=== PATIENT | female | born 1960 | race Caucasian/White ===

== ENCOUNTER 2018-01-24 14:54 | Outpatient (REF) | payer OTHER, SELFPAY ==
[2018-01-24 21:07] LABS: Abs Immature Grans 0.01 k/cumm (0.0-0.09); Absolute Basophil Count 0.02 k/cumm (0.0-0.2); Absolute Eosinophil Count 0.27 k/cumm (0.0-0.7); Absolute Lymphocyte Count 1.45 k/cumm (1.2-3.4); Absolute Monocyte Count 0.53 k/cumm (0.11-0.7); Absolute Neutrophil Count 3.79 k/cumm (1.2-6.7); Basophils % 0.3; Eosinophils % 4.4; HCT 40.4 % (36.0-46.0); HGB 13.1 g/dL (12.0-15.5); Immature Grans % 0.2; Lymphocytes % 23.9; Mean Corp. HGB Concentration 32.4 g/dL (32.0-36.0); Mean Corpuscular Hemoglobin 30.7 pg (27.0-33.0); Mean Corpuscular Volume 94.6 fL (80-95); Mean Platelet Volume 11.6 fL (8.0-11.0); Monocytes % 8.7; Neutrophils % 62.5; Platelet Count 189 x1000/uL (130-400); RBC 4.27 m/cumm (4.00-5.20); White Blood Cell Count 6.07 k/cumm (4.4-10.8)
[2018-01-24 21:22] LABS: ALT 42 U/L (12-78); AST 30 U/L (15-37); Albumin 3.8 g/dL (3.4-5.0); Alkaline Phosphatase 103 U/L (46-116); Anion Gap 13.1 mmol/L (3-11); BUN 13 mg/dL (7-18); Bilirubin, Total 0.6 mg/dL (0.2-1.0); CO2 22.9 mmol/L (21.0-32.0); CREATININE 0.64 mg/dL (0.55-1.02); Chloride 104 mmol/L (98-107); Glucose 94 mg/dL (70-100); Potassium 3.9 mmol/L (3.5-5.1); Sodium 140 mmol/L (136-145); Total Protein 7.1 g/dL (6.4-8.2)
[2018-01-24 21:30] LABS: INR 0.9 (1.0-3.5); Prothrombin Time 9.2 sec (9.3-10.8)
[2018-01-25 13:21] LABS: Calcium 9.1 mg/dL (8.5-10.1)
== END 2018-01-24 15:14 ==
LOC: NCHCN 14:54
PROVIDERS: PCP Nurse Practitioner Family; Visit Provider Physician Assistant Medical
DX: Z01.818 Encounter for other preprocedural examination (principal); R69 Illness, unspecified
CPT/HCPCS: 80053; 85025; 85610

== ENCOUNTER 2022-07-01 15:05 | Outpatient (REF) | payer MEDICARE, SELFPAY ==
[2022-07-01 20:30] LABS: ALT 40 U/L (14-59); AST 26 U/L (15-37); Albumin 4.2 g/dL (3.4-5.0); Alkaline Phosphatase 68 U/L (46-116); Anion Gap 5.2 mmol/L (3-11); BUN 14 mg/dL (7-18); Bilirubin, Total 0.3 mg/dL (0.2-1.0); CO2 27.8 mmol/L (21.0-32.0); CREATININE 0.7 mg/dL (0.55-1.02); Calcium 9.8 mg/dL (8.5-10.1); Calculated LDL 44 mg/dL (<100); Chloride 105 mmol/L (98-107); Cholesterol 146 mg/dL (<200); Estimated GFR 97.72 (mL/min/1.73m2); Glucose 97 mg/dL (74-106); HDL Cholesterol 64 mg/dL (40-60); Potassium 4.3 mmol/L (3.5-5.1); Sodium 138 mmol/L (136-145); Total Protein 7.5 g/dL (6.4-8.2); Triglyceride 190 mg/dL (<150)
== END 2022-07-01 15:06 | disposition home or self-care (01) ==
LOC: NCHCN 15:05
PROVIDERS: PCP Nurse Practitioner Family; Visit Provider Nurse Practitioner Family
DX: E78.5 Hyperlipidemia, unspecified (principal)
CPT/HCPCS: 80053; 80061

== ENCOUNTER 2023-04-18 19:27 | Outpatient (REF) | payer OTHER, SELFPAY ==
--- OUTSIDE RECORDS SUMMARY | 2023-04-18 19:33 | XMS_ITS | Continuity of Care Document ---
Author Name Unknown Organization [facility] Address [address] [place] [address] Care Team Providers Care Intel Recruiter Name Role Phone Eve Terry Primary Care Physician Encounter [facility] [id number] Date(s): 08/05/22 - 08/05/[address] [address] Discharge Disposition: Home or Self Care Attending Physician: Eve Terry FILLER MIXER Admitting Physician: Eve Terry FILLER MIXER Referring Physician: Eve Terry FILLER MIXER Allergies, Adverse Reactions, Alerts Substance Reaction Severity Status codeine Nausea Unknown Active alendronate 1 Unknown Active NSAIDs 2 Nauseous Unknown Active 1per previous PCP 2gets nauseous on empty stomach, per previous PCP, yet ibuprofen prescribed for neck pain, toleratedmeloxicam Immunizations Given and Recorded Vaccine Date Status Refusal Reason SARS-CoV-2 (COVID-19) mRNA-1273 vaccine 09/05/20 R ecorded SARS-CoV-2 (COVID-19) mRNA-1273 vaccine 08/05/20 R ecorded tetanus-diphth toxoids (Td) adult/adol 04/24/20 Re corded tetanus-diphth toxoids (Td) adult/adol 06/04/05 Re corded tetanus-diphth toxoids (Td) adult/adol 04/11/84 Re corded influenza virus vaccine, live 12/31/19 Recorded influenza virus vaccine, live 03/28/19 Recorded zoster vaccine, inactivated 07/31/18 Recorded zoster vaccine, inactivated 01/24/18 Recorded pneumococcal 23-polyvalent vaccine 05/05/17 Record ed influenza virus vaccine, inactivated 04/27/12 Niraj rded influenza virus vaccine, inactivated 12/03/10 Niraj rded influenza virus vaccine, inactivated 01/09/10 Niraj rded influenza virus vaccine, inactivated 05/22/09 Niraj rded influenza virus vaccine, inactivated 01/05/08 Niraj rded influenza virus vaccine, inactivated 01/24/07 Niraj rded influenza virus vaccine, inactivated 03/16/06 Niraj rded tetanus/diphth/pertuss (Tdap) adult/adol 06/09/10 Recorded Novel [id number], all formulation 05/22/09 Recorded Medications atorvastatin 20 mg oral tablet 20 mg = 1 tab, Oral, Daily, FOR 90 DAYS, # 90 tab, 2 Refill(s), Pharmacy: [facility] Start Date: 03/10/22 Status: Ordered Cipro 500 mg oral tablet 500 mg = 1 tab, Oral, every 12 hr, # 20 tab, 0 Refill(s), Pharmacy: [facility] Start Date: 12/18/21 Stop Date: 12/28/21 Status: Ordered FLUoxetine 20 mg oral capsule 20 mg = 1 cap, Oral, Daily Start Date: 11/26/21 Status: Ordered FLUoxetine 40 mg oral capsule 40 mg = 1 cap, Oral, Daily, # 90 cap, 3 Refill(s), Pharmacy: [facility] Start Date: 03/07/22 Status: Ordered Maxalt 10 mg oral tablet See Instructions, 1 tab PO at sign of migraine, may repeat in 2 hours, NTE 30 mg per day Start Date: 11/26/21 Status: Ordered meloxicam 15 mg oral tablet 15 mg = 1 tab, Oral, Daily, for 90 days, # 90 tab, 2 Refill(s), Pharmacy: [facility] Start Date: 03/10/22 Status: Ordered Topamax 25 mg oral tablet 25 mg = 1 tab, Oral, Daily, for 90 days Start Date: 11/26/21 Status: Ordered Topamax 50 mg oral tablet 50 mg = 1 tab, Oral, Daily, for 90 days Start Date: 11/26/21 Status: Ordered traZODone 50 mg oral tablet 50 mg = 1 tab, Oral, every night at bedtime, for 90 days Start Date: 11/26/21 Status: Ordered Vitamin B Complex Vitamin B Complex, 1 tab, Oral, Daily, 0 Refill(s) Start Date: 11/26/21 Status: Ordered Vitamin D3 See Instructions, 1 po daily Start Date: 11/26/21 Status: Ordered Problem List Condition Confirmation Course Effective Dates Status Health Status Informant Cervical radiculopathy Confirmed Active Ex-smoker Confirmed 07/16/20 Active Fibromyalgia Confirmed Active Hepatosplenomegaly Confirmed 08/28/20 Active Hyperlipidemia Confirmed Active Migraine without aura Confirmed Active Mixed anxiety and depressive disorder Confirmed 04/22/21 Active Procedures Procedure Date Related Diagnosis Body Site Status Hysterectomy 07/2018 Completed Fusion 1 02/2018 Completed Laparoscopic total hysterectomy 04/13/09 Completed Angiogram 2 Completed Appendectomy Completed Cholecystectomy Completed Lumpectomy 3 Completed Nerve block in lumbar spine Completed Tonsillectomy 4 Completed 1[facility] ACDF (fusion) C5-C6 2with no pathology 3Lump removal, right hand 4As a child Social History Social History Type Response Smoking Status Smoking tobacco use: Former tobacco user;Never; Total pack years: 37; 1 entered on: 11/11/21 Sex Female 1quit in 2008 Patient Care team information Care Team Personnel Name: Eve Terry FILLER MIXER Position: PowerChart View Only Member Role: Primary Care Physician Address: Address: [address] [place] [id number] [place] [address]
--- OUTSIDE RECORDS SUMMARY | 2023-04-18 19:33 | XMS_ITS | Continuity of Care Document ---
Author Name Unknown Organization [facility] Address [address] [place] [address] Care Team Providers Care Cv/Cvn Cv Tsc System Operator Name Role Phone Jasmin Liu Primary Care Physician [phone] Encounter [facility] Date(s): 01/28/22 - 01/28/22 [facility] [address] [place] [address] Encounter Diagnosis Physical exam, annual(Discharge Diagnosis) - 01/28/22 Sinusitis(Discharge Diagnosis) - 01/28/22 Discharge Disposition: Home or Self Care Attending Physician: Jasmin Liu Admitting Physician: Jasmin Liu Allergies, Adverse Reactions, Alerts Substance Reaction Severity [...] rded tetanus/diphth/pertuss (Tdap) adult/adol 06/09/10 Recorded Novel [id number], all formulation 05/22/09 Recorded Medications atorvastatin 20 mg oral tablet 20 mg = 1 tab, Oral, Daily, FOR 90 DAYS, # 90 tab, 0 Refill(s), Pharmacy: Pharmacy Start Date: 12/15/21 Status: Ordered Cipro 500 mg oral tablet 500 mg = 1 tab, Oral, every 12 hr, # 20 tab, 0 Refill(s), Pharmacy: Pharmacy Start Date: 12/18/21 Stop Date: 12/28/21 Status: Ordered FLUoxetine 20 mg oral capsule 20 mg = 1 cap, Oral, Daily Start Date: 11/26/21 Status: Ordered FLUoxetine 40 mg oral capsule 40 mg = 1 cap, Oral, Daily Start Date: 11/26/21 Status: Ordered Maxalt 10 mg oral tablet See Instructions, 1 tab PO at sign of migraine, may repeat in 2 hours, NTE 30 mg per day Start Date: 11/26/21 Status: Ordered meloxicam 15 mg oral tablet 15 mg = 1 tab, Oral, Daily, for 90 days, # 90 tab, 0 Refill(s), Pharmacy: Pharmacy Start Date: 12/15/21 Status: Ordered Topamax 25 mg oral tablet [...] 1quit in 2008 Patient Care team information Personnel Name: Jasmin Liu Address: Address: [address] [place] [id number] [place]
--- OUTSIDE RECORDS SUMMARY | 2023-04-18 19:33 | XMS_ITS | Continuity of Care Document ---
Author Name Unknown Organization [facility] Address [address] [place] [address] Care Team Providers Care Flasher Adjuster Name Role Phone RoddyShelly bobide Maribell Primary Care Physician [phone] Encounter [facility] [id number] Date(s): 01/21/23 - 01/21/23 [facility] [address] [place] [address] Discharge Disposition: Home or Self Care Attending Physician: Geo Walker DO Admitting Physician: Geo Walker DO Referring Physician: Geo Walker DO Allergies, Adverse Reactions, Alerts Substance Reaction Severity Status codeine Nausea Unknown Active alendronate 1 Unknown Active NSAIDs 2 Nauseous Unknown Active 1per previous PCP 2gets nauseous on empty stomach, per previous PCP, yet ibuprofen prescribed for neck pain, toleratedmeloxicam Functional Status 01/21/23 ADLs Independent Recent Travel History No recent travel 01/14/23 Living Situation Home independently Immunizations Given and Recorded Vaccine Date Status [...] rded tetanus/diphth/pertuss (Tdap) adult/adol 06/09/10 Recorded Novel [id number], all formulation 05/22/09 Recorded Medications atorvastatin 20 mg oral tablet 20 mg = 1 tab, Oral, Daily, FOR 90 DAYS, # 90 tab, 2 Refill(s), Pharmacy: [facility] Start Date: 03/10/22 Status: Ordered Botox for migraines, 0 Refill(s) Start Date: 01/21/23 Status: Ordered Cipro 500 mg oral tablet 500 mg = 1 tab, Oral, every 12 hr, # 20 tab, 0 Refill(s), Pharmacy: [facility] Start Date: 12/18/21 Stop Date: 12/28/21 Status: Ordered clacium,iron,zinc clacium,iron,zinc, 0 Refill(s) Start Date: 12/28/22 Status: Ordered FLUoxetine 20 mg oral capsule 20 mg = 1 cap, Oral, Daily Start Date: 11/26/21 Status: Ordered FLUoxetine 40 mg oral capsule 40 mg = 1 cap, Oral, Daily, # 90 cap, 3 Refill(s), Pharmacy: [facility] Start Date: 03/07/22 Status: Ordered Maxalt 10 mg oral tablet See Instructions, 1 tab PO at sign of migraine, may repeat in 2 hours, NTE 30 mg per day Start Date: 11/26/21 Status: Ordered meloxicam 15 mg oral tablet 15 mg = 1 tab, Oral, Daily, for 90 days, # 90 tab, 2 Refill(s), Pharmacy: [facility] Start Date: 03/10/22 Status: Ordered Metamucil 400 mg oral capsule 2,000 mg = 5 cap, Oral, QID, PRN as needed for constipation, with at least 8 ounces of water, # 160cap, 0 Refill(s) Start Date: 01/21/23 Status: Ordered multivitamin adult, oral tablet 0 Refill(s) Start Date: 12/28/22 Status: Ordered Topamax 25 mg oral tablet [...] Course Effective Dates Status Health Status Informant Aneurysm 1 Confirmed 12/31/22 Active Cervical radiculopathy Confirmed Active Ex-smoker Confirmed 07/16/20 Active Fibromyalgia Confirmed Active Hepatosplenomegaly Confirmed 08/28/20 Active Hyperlipidemia Confirmed Active Migraine without aura Confirmed Active Mixed anxiety and depressive disorder Confirmed 04/22/21 Active 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) Procedures Procedure Date Related Diagnosis Body Site Status Hysterectomy 07/2018 Completed Fusion 1 02/2018 Completed Laparoscopic total hysterectomy 04/13/09 Completed Angiogram 2 Completed Appendectomy Completed Cholecystectomy Completed Lumpectomy 3 Completed Nerve block in lumbar spine Completed Tonsillectomy 4 Completed 1[facility] ACDF (fusion) C5-C6 2with no pathology 3Lump removal, right hand 4As a child Vital Signs Most recent to oldest [Reference Range]: 1 2 3 Temperature Temporal Artery [36-38 Deg C] 36.3 Deg C (01/21/23 10:50 AM) 37.1 Deg C (01/21/23 10:29 AM) 37.2 Deg C (01/21/23 8:53 AM) Temperature Temporal Artery (DegF) [97.3-100 Deg F] 97.34 Deg F (01/21/23 10:50 AM) 98.78 Deg F (01/21/23 10:29 AM) Peripheral Pulse Rate [60-100 bpm] 77 bpm (01/21/23 10:50 AM) 87 bpm (01/21/23 10:45 AM) 93 bpm (01/21/23 10:40 AM) Heart Rate Monitored [60-100 bpm] 86 bpm (01/21/23 10:50 AM) 90 bpm (01/21/23 10:45 AM) 93 bpm (01/21/23 10:40 AM) Respiratory Rate [12-24 br/min] 15 br/min (01/21/23 10:50 AM) 22 br/min (01/21/23 10:45 AM) 22 br/min (01/21/23 10:40 AM) Blood Pressure [90-140/60-90 mmHg] 132/73mmHg (01/21/23 10:50 AM) 117/72mmHg (01/21/23 10:45 AM) 120/76mmHg (01/21/23 10:40 AM) Mean Arterial Pressure, Cuff [65-140 mmHg] 93 mmHg (01/21/23 10:50 AM) 87 mmHg (01/21/23 10:45 AM) 91 mmHg (01/21/23 10:40 AM) Weight 74.8 kg (01/21/23 8:53 AM) Height 163 cm (01/21/23 8:53 AM) Social History Social History Type Response Smoking Status Smoking tobacco use: Former tobacco user;Never; Total pack years: 37; 1 entered on: 01/14/23 Sex Female 1quit in 2008 Hospital Discharge Instructions Patient Education 01/21/2023 09:39:14 ss colonoscopy discharge instructions (CUSTOM) COLONOSCOPY / SIGMOIDOSCOPY Good job with prep! No polyps found. Repeat Colonoscopy in 10 years Following day: Return to full activity, including work. Diet: Eat and drink normally, unless instructed otherwise. Treatment for common after affects: Mild abdominal pain, bloating, or excessive gas: Rest, eat lightly and use a heating pad. Symptoms to watch for and report to your physician: SEVERE abdominal pain or bloating. Fever within 24 hours after procedure. A large amount of rectal bleeding. (A small amount of blood from the rectum is not serious, especially if hemorrhoids are present.) If you have had a Colonoscopy: Do not attempt to drive a vehicle or operate power equipment of any kind for at least 24 hours after discharge from the hospital. Do not consume alcoholic beverages or other mood-altering drugs on the day of surgery. Mild irritation at needle site: Apply warm, moist pack to area for 20 minutes four times a day for 2-3 days. Call physician if persistent redness and/or drainage at needle site. In the event of any problems after surgery, do not hesitate to contact your doctor, [facility] , or the Emergency Room at [phone]. Discharge instructions * Eryn Kramer: PERFORM Event Display: Discharge Instructions Authored Date: [id number] LADAN JEFFERY J :1960 Age:62 years Sex:Female Visit Date:01/21/2023 Primary Care Physician: Eve Terry CERNER ANALYST Hospital Discharge Instructions We would like to thank you for allowing us to assist you with your healthcare needs. The following includes patient education materials and information regarding your injury/illness. Your Summary Discharge Vitals Temperature??(Temporal Artery) 99.0 ??F (37.2 ??C) Heart Rate??(Peripheral) 76 Respiratory Rate?? 16 Blood Pressure?? 125/78?? Height?? 64.17 in (163 cm) Weight?? 164.93 lb (74.8 kg) Education Materials COLONOSCOPY / SIGMOIDOSCOPY Good job with prep! No polyps found. Repeat Colonoscopy in 10 years ? Following day: Return to full activity, including work. Diet: Eat and drink normally, unless instructed otherwise. ? Treatment for common after affects: Mild abdominal pain, bloating, or excessive gas: Rest, eat lightly and use a heating pad. ? Symptoms to watch for and report to your physician: SEVERE abdominal pain or bloating. ? Fever within 24 hours after procedure. ? A large amount of rectal bleeding. (A small amount of blood from the rectum is not serious, especially if hemorrhoids are present.) ? If you have had a Colonoscopy: Do not attempt to drive a vehicle or operate power equipment of any kind for at least 24 hours after discharge from the hospital. ? Do not consume alcoholic beverages or other mood-altering drugs on the day of surgery. ? Mild irritation at needle site: Apply warm, moist pack to area for 20 minutes four times a day for 2-3 days. ? Call physician if persistent redness and/or drainage at needle site. ? In the event of any problems after surgery, do not hesitate to contact your doctor, [facility] , or the Emergency Room at [phone]. Patient/Email Operations Manager Signature Patient Name:JEFFERY PICKERING I have received this information and my questions have been answered. Patient/Email Operations Manager Name: Patient/Email Operations Manager Signature: Relationship to Patient: Witness Name/Signature: Date: Electronically Signed on: 01/21/2023 10:40 EDTSigned by:PAF History and physical note * Lisa Cosby: PERFORM Event Display: History and Physical Authored Date: [id number] JEFFERY PICKERING :1960 Age:62 years Sex:Female Primary Care Physician: Chute, Eve H CERNER ANALYST Chief Complaint blood in stool, constipation History of Present Illness Patient presents with occasional rectal bleeding and left sided abdominal pain. She was diagnosed with diverticulitis in July. Her last colonoscopy was many years ago (around 10). No family hx of colon cancer. She does have history of hemorrhoids. She has had blood in her stool occasionally. ??Shedoes not take any fiber supplementation. Many prior surgeries including appendectomy, multiple c-s.Denies blood thinner use. No fevers, chills. no prior episodes of diverticulitis Review of Systems see hpi Physical Exam ?Vitals & Measurements ?T:??36.9?C ??(Tympanic)?? HR:??77??(Peripheral)?? BP:??132/86?? SpO2:??94%?HT:??166.7??cm?? WT:??78.15??kg?? BMI:??28.12?? BSA:??1.9?? NAD, cooperative ?? Non labored breathing ?? RR ?? Soft, NT, ND, well healed lower midline scars ?? DALJIT: NO masses palpated?? good rectal tone ,no blood on glove. Kaylah was maternal fetal physician present Assessment/Plan 1.??Diverticulitis??K57.92 ?Discussed clinical nature of diverticulitis and potential indications for surgery. Given the patient is due to screening colonoscopy with change in bowel movements, blood in stool??and recent episode of diverticulitis, it would be beneficial for her to have a C-scope. Patient was??encourage to increase her fiber intake as well and stay well hydrated. ? 2.??Encounter for screening colonoscopy??Z12.11 ?As above. ?? Images ?? CT abdomen and pelvis in July reviewed Problem List/Past Medical History Ongoing ?Cervical radiculopathy ??Ex-smoker ??Fibromyalgia ??Hepatosplenomegaly ??Hyperlipidemia ??Migraine without aura ??Mixed anxiety and depressive disorder Historical ?No qualifying data Procedure/Surgical History ???Hysterectomy (07/2018)???Fusion (02/2018)???Laparoscopic total hysterectomy (04/14/2009)???Angiogram???Appendectomy???Cholecystectomy???Nerve block in lumbar spine???Lumpectomy???Tonsillectomy ?? Medications ??atorvastatin 20 mg oral tablet, 20 mg= 1 tab, Oral, Daily, 2 refills ??Cipro 500 mg oral tablet, 500 mg= 1 tab, Oral, every 12 hr ??clacium,iron,zinc ??FLUoxetine 20 mg oral capsule, 20 mg= 1 cap, Oral, Daily ??FLUoxetine 40 mg oral capsule, 40 mg= 1 cap, Oral, Daily, 3 refills ??Maxalt 10 mg oral tablet, See Instructions ??meloxicam 15 mg oral tablet, 15 mg= 1 tab, Oral, Daily, 2 refills ??multivitamin adult, oral tablet ??Topamax 25 mg oral tablet, 25 mg= 1 tab, Oral, Daily ??Topamax 50 mg oral tablet, 50 mg= 1 tab, Oral, Daily ??traZODone 50 mg oral tablet, 50 mg= 1 tab, Oral, every night at bedtime ??Vitamin B Complex, 1 tab, Oral, Daily ??Vitamin D3, See Instructions Allergies NSAIDs??(Nauseous) alendronate codeine??(Nausea) Social History Alcohol ??Current, Beer, 1-2 times per year- Comments: a few times per week, 3 - 4 beers Electronic Cigarette/Vaping ??Electronic Cigarette Use: Never. Tobacco ??Former tobacco user Tobacco Use:. Total pack years: 37. Never Smokeless Tobacco use:.- Comments: quit in 2008 Family History ??Chronic obstructive lung disease: Mother. ??Diabetes mellitus: Sister and Brother. ??Disorder of thyroid gland: Mother. ??Fibrosis of lung: Mother. ??Heart disease: Brother. ??Hyperlipidemia: Sister. ??Hypertensive disorder: Father and Daughter. ??Myocardial infarction: Father. ? Immunizations ??Vaccine ??Date ??Status ??SARS-CoV-2 (COVID-19) mRNA-1273 vaccine ??09/05/2020 ??Recorded ??SARS-CoV-2 (COVID-19) mRNA-1273 vaccine ??08/05/2020 ??Recorded ??tetanus-diphth toxoids (Td) adult/adol ??04/24/2020 ??Recorded ??influenza virus vaccine, live ??12/31/2019 ??Recorded ??influenza virus vaccine, live ??03/28/2019 ??Recorded ??zoster vaccine, inactivated ??07/31/2018 ??Recorded ??zoster vaccine, inactivated ??01/24/2018 ??Recorded ??pneumococcal 23-polyvalent vaccine ??05/05/2017 ??Recorded ??influenza virus vaccine, inactivated ??04/27/2012 ??Recorded ??influenza virus vaccine, inactivated ??12/03/2010 ??Recorded ??tetanus/diphth/pertuss (Tdap) adult/adol ??06/09/2010 ??Recorded ??influenza virus vaccine, inactivated ??01/09/2010 ??Recorded ??influenza virus vaccine, inactivated ??05/22/2009 ??Recorded ??Novel [id number], all formulation ??05/22/2009 ??Recorded ??influenza virus vaccine, inactivated ??01/05/2008 ??Recorded ??influenza virus vaccine, inactivated ??01/24/2007 ??Recorded ??influenza virus vaccine, inactivated ??03/16/2006 ??Recorded ??tetanus-diphth toxoids (Td) adult/adol ??06/04/2005 ??Recorded ??tetanus-diphth toxoids (Td) adult/adol ??04/11/1984 ??Recorded ? Signature Line Electronically Signed on 12/28/22 02:32 PM Geo Walker DO [1] [1]??Office Visit Note; Geo Walker DO 12/28/2022 14:31 EDT Electronically Signed on 12/29/22 11:04 AM Lisa Cosby * Geo Walker DO: PERFORM Event Display: History and Physical Authored Date: [id number] H&P??reviewed, pt examined,??no significant changes to medical history. Proceed as planned.? Geo Walker DO 01/21/2023 ?? Electronically Signed on 01/21/23 09:44 AM Geo Walker DO Patient Care team information Care Team Personnel Name: Eve Terry CERNER ANALYST Position: PowerChart View Only Member Role: Informed Provider Address: Address: [address] [place] [phone]- Care Team Related Persons Name: MAHENDRA PICKERING Address: Home [address] [place] [address], [phone]
--- OUTSIDE RECORDS SUMMARY | 2023-04-18 19:33 | XMS_ITS | Continuity of Care Document ---
Author Name Unknown Organization [facility] Address [address] [place] [address] Care Team Providers Care Floral Assistant Name Role Phone Eve Terry Primary Care Physician Encounter [facility] [id number] Date(s): 10/04/22 - 10/04/[address] [address] Discharge Disposition: Home or Self Care Attending Physician: Eve Terry INDUSTRIAL EDITOR Admitting Physician: Eve Terry INDUSTRIAL EDITOR Referring Physician: Eve Terry INDUSTRIAL EDITOR Allergies, Adverse Reactions, Alerts Substance Reaction Severity [...] rded tetanus/diphth/pertuss (Tdap) adult/adol 06/09/10 Recorded Novel [id number], all formulation 05/22/09 Recorded Medications atorvastatin 20 mg oral tablet 20 mg = 1 tab, Oral, Daily, FOR 90 DAYS, # 90 tab, 2 Refill(s), Pharmacy: [facility] Start Date: 03/10/22 Status: Ordered Cipro 500 mg oral tablet 500 mg = 1 tab, Oral, every 12 hr, # 20 tab, 0 Refill(s), Pharmacy: [facility] Start Date: 12/18/21 Stop Date: 12/28/21 Status: Ordered FLUoxetine 20 mg oral capsule 20 mg = 1 cap, Oral, Daily Start Date: 11/26/21 Status: Ordered FLUoxetine 40 mg oral capsule 40 mg = 1 cap, Oral, Daily, # 90 cap, 3 Refill(s), Pharmacy: [facility] Start Date: 03/07/22 Status: Ordered Maxalt 10 mg oral tablet See Instructions, 1 tab PO at sign of migraine, may repeat in 2 hours, NTE 30 mg per day Start Date: 11/26/21 Status: Ordered meloxicam 15 mg oral tablet 15 mg = 1 tab, Oral, Daily, for 90 days, # 90 tab, 2 Refill(s), Pharmacy: [facility] Start Date: 03/10/22 Status: Ordered [...] information Care Team Personnel Name: Eve Terry INDUSTRIAL EDITOR Position: PowerChart View Only Member Role: Primary Care Physician Address: Address: [address] [place] [id number] [place] [address] Care Team Related Persons Name: MAHENDRA PICKERING Address: Home
--- OUTSIDE RECORDS SUMMARY | 2023-04-18 19:33 | XMS_ITS | Continuity of Care Document ---
Author Name Unknown Organization [facility] Address [address] [place] [address] Care Team Providers Care Assistant Restaurant General Manager Name Role Phone Eve Terry Primary Care Physician Encounter [facility] Date(s): 07/21/22 - 07/21/22 [facility] [address] [place] [address] [place] Encounter Diagnosis Diverticulitis(Discharge Diagnosis) - 07/21/22 Diverticulitis of intestine, part unspecified, without perforation or abscess without bleeding(Final) - Other retirement (current) drug therapy(Final) - Personal history of nicotine dependence(Final) - Discharge Disposition: Home or Self Care Attending Physician: José Antonio Nunes MD Admitting Physician: José Antonio Nunes MD Allergies, Adverse Reactions, Alerts Substance Reaction Severity Status codeine Nausea Unknown Active alendronate 1 Unknown Active NSAIDs 2 Nauseous Unknown Active 1per previous PCP 2gets nauseous on empty stomach, per previous PCP, yet ibuprofen prescribed for neck pain, toleratedmeloxicam Functional Status 07/21/22 Family Member Travel History No recent t ravel Recent Travel History No recent travel Other exposure to Infectious Disease Non e Immunizations Given and Recorded Vaccine Date Status [...] rded tetanus/diphth/pertuss (Tdap) adult/adol 06/09/10 Recorded Novel [id number], all formulation 05/22/09 Recorded Medications !-Augmentin 875 mg-125 mg oral tablet 1 tab, Oral, every 8 hr, X 5 days, # 15 tab, 0 Refill(s), 07/26/22 18:01:00 EDT, Pharmacy: [id number], 162, cm, 07/21/22 15:56:00 EDT, Height/Length Dosing, 73, kg, 07/21/22 15:56:00 EDT, Weight Dosing Start Date: 07/21/22 Stop Date: 07/26/22 Status: Ordered atorvastatin 20 mg oral tablet 20 mg = 1 tab, Oral, Daily, FOR 90 DAYS, # 90 tab, 2 Refill(s), Pharmacy: [facility] Start Date: 03/10/22 Status: Ordered Cipro 500 mg oral tablet 500 mg = 1 tab, Oral, every 12 hr, # 20 tab, 0 Refill(s), Pharmacy: [facility] Start Date: 12/18/21 Stop Date: 12/28/21 Status: Ordered FLUoxetine 20 mg oral capsule 20 mg = 1 cap, Oral, Daily Start Date: 11/26/21 Status: Ordered FLUoxetine 40 mg oral capsule 40 mg = 1 cap, Oral, Daily, # 90 cap, 3 Refill(s), Pharmacy: [facility] Start Date: 03/07/22 Status: Ordered Maxalt 10 mg oral tablet See Instructions, 1 tab PO at sign of migraine, may repeat in 2 hours, NTE 30 mg per day Start Date: 11/26/21 Status: Ordered meloxicam 15 mg oral tablet 15 mg = 1 tab, Oral, Daily, for 90 days, # 90 tab, 2 Refill(s), Pharmacy: [facility] Start Date: 03/10/22 Status: Ordered Topamax [...] 3Lump removal, right hand 4As a child Results Laboratory List Name Date CBC w/ Diff 07/21/22 Comprehensive Metabolic Panel (CMP) 07/21 Automated Diff 07/21/22 Urinalysis Microscopic 07/21/22 Urinalysis with Micro if Indicated and C ulture if Indicated 07/21/22 Most recent to oldest [Reference Range]: 1 WBC [5.0-10.0 x10^3/mcL] 8.3 x10^3/mcL (07/21/22 4:25 PM) RBC [4.1-5.3 x10^6/mcL] 4.2 x10^6/mcL (07/21/22 4:25 PM) Neutro Auto [40.0-75.0 %] 55.0 % (07/21/22 4:25 PM) Lymph Auto [20.0-50.0 %] 34.4 % (07/21/22 4:25 PM) [place] Auto [2.0-15.0 %] 7.2 % (07/21/22 4:25 PM) Basophil Auto [0.0-1.0 %] 0.5 % (07/21/22 4:25 PM) BUN [7-18 mg/dL] 13 mg/dL (07/21/22 4:25 PM) UA Color Yellow (07/21/22 4:10 PM) UA WBC [0-3] 0-3 (07/21/22 4:10 PM) Glucose Level [74-106 mg/dL] 92 mg/dL (07/21/22 4:25 PM) Potassium Level [3.5-5.1 mmol/L] 3.8 mmo l/L (07/21/22 4:25 PM) MCV [80.0-96.0] 93.4 (07/21/22 4:25 PM) UA Urobilinogen Normal (07/21/22 4:10 PM) UA Bili [Negative] Negative (07/21/22 4:10 PM) UA Ketones Negative (07/21/22 4:10 PM) AST [15-37 unit/L] 16 unit/L (07/21/22 4:25 PM) ALT [14-59 unit/L] 32 unit/L (07/21/22 4:25 PM) MCHC [31.0-35.0 g/dL] 32.1 g/dL (07/21/22 4:25 PM) Sodium Level [136-145 mmol/L] 141 mmol/L (07/21/22 4:25 PM) UA RBC [0-2] 0-2 (07/21/22 4:10 PM) UA Leuk Est Trace *ABN* (07/21/22 4:10 PM) UA Nitrite Negative (07/21/22 4:10 PM) UA Glucose [Negative] Negative (07/21/22 4:10 PM) Hct [37.0-47.0 %] 39.6 % (07/21/22 4:25 PM) UA Bacteria Rare /HPF (07/21/22 4:10 PM) Calcium Level [8.5-10.1 mg/dL] 8.9 mg/dL (07/21/22 4:25 PM) Albumin Level [3.4-5.0 g/dL] 3.5 g/dL (07/21/22 4:25 PM) Protein Total [6.4-8.2 g/dL] 7.0 g/dL (07/21/22 4:25 PM) UA Protein Negative (07/21/22 4:10 PM) MCH [26.0-32.0 pg] 30.0 pg (07/21/22 4:25 PM) Neutro Absolute 4.6 x10^3/mcL *NA* (07/21/22 4:25 PM) Bilirubin Total [0.2-1.0 mg/dL] 0.3 mg/d L (07/21/22 4:25 PM) Hgb [12.0-16.0 g/dL] 12.7 g/dL (07/21/22 4:25 PM) Alk Phos [46-146 unit/L] 89 unit/L (07/21/22 4:25 PM) UA Blood Negative (07/21/22 4:10 PM) UA Mucous None Seen /HPF (07/21/22 4:10 PM) UA Spec Grav 1.010 *NA* (07/21/22 4:10 PM) Platelets [130-450 x10^3/mcL] 242 x10^3/ mcL (07/21/22 4:25 PM) CO2 [21-32 mmol/L] 23 mmol/L (07/21/22 4:25 PM) UA Squam Epithelial [None Seen] None See n (07/21/22 4:10 PM) UA pH 7.0 *NA* (07/21/22 4:10 PM) eGFR Non-AA [>=60] 104 (07/21/22 4:25 PM) eGFR AA [>=60] 104 (07/21/22 4:25 PM) UA Appear Clear (07/21/22 4:10 PM) Chloride Level [98-107 mmol/L] 108 mmol/ L *HI* (07/21/22 4:25 PM) RDW-CV [11.7-17.0 %] 12.6 % (07/21/22 4:25 PM) Imm Gran Auto [0.0-0.9 %] 0.4 % (07/21/22 4:25 PM) UA Culture Ind?. Not Indicated (07/21/22 4:10 PM) Creatinine Level [0.55-1.02 mg/dL] 0.55 mg/dL (07/21/22 4:25 PM) Eos, Auto [1.0-6.0 %] 2.5 % (07/21/22 4:25 PM) Vital Signs Most recent to oldest [Reference Range]: 1 2 Temperature Temporal Artery [36-38 Deg C ] 36.3 Deg C (07/21/22 3:50 PM) Peripheral Pulse Rate [60-100 bpm] 70 bp m (07/21/22 6:13 PM) 71 bpm (07/21/22 3:50 PM) Respiratory Rate [12-24 br/min] 16 br/mi n (07/21/22 6:13 PM) 20 br/min (07/21/22 3:50 PM) Blood Pressure [90-140/60-90 mmHg] 130/9 0mmHg (07/21/22 6:13 PM) 152/83mmHg *HI* (07/21/22 3:50 PM) Weight Dosing 73.00 kg (07/21/22 3:56 PM) Weight Estimated 73.00 kg (07/21/22 3:50 PM) Height/Length Dosing 162.000 cm (07/21/22 3:56 PM) Height/Length Estimated 162.000 cm (07/21/22 3:50 PM) Social History Social History Type Response Smoking Status Smoking tobacco use: Former tobacco user;Never; Total pack years: 37; 1 entered on: 11/11/21 Sex Female 1quit in 2008 Hospital Discharge Instructions Patient Education 07/21/2022 16:59:39 Diverticulitis Diverticulitis Diverticulitis is infection or inflammation of small pouches (diverticula) in the colon that form due to a condition called diverticulosis. Diverticula can trap stool (feces) and bacteria, causing infection and inflammation. Diverticulitis may cause severe stomach pain and diarrhea. It may lead to tissue damage in the colon that causes bleeding or blockage. The diverticula may also burst (rupture) and cause infected stool to enter other areas of the abdomen. What are the causes? This condition is caused by stool becoming trapped in the diverticula, which allows bacteria to grow in the diverticula. This leads to inflammation and infection. What increases the risk? You are more likely to develop this condition if you have diverticulosis. The risk increases if you: ??? Are overweight or obese. ??? Do not get enough exercise. ??? Drink alcohol. ??? Use tobacco products. ??? Eat a diet that has a lot of red meat such as beef, pork, or bahena. ??? Eat a diet that does not include enough fiber. High-fiber foods include fruits, vegetables, beans, nuts, and whole grains. ??? Are over 40 years of age. What are the signs or symptoms? Symptoms of this condition may include: ??? Pain and tenderness in the abdomen. The pain is normally located on the left side of the abdomen, but it may occur in other areas. ??? Fever and chills. ??? Nausea. ??? Vomiting. ??? Cramping. ??? Bloating. ??? Changes in bowel routines. ??? Blood in your stool. How is this diagnosed? This condition is diagnosed based on: ??? Your medical history. ??? A physical exam. ??? Tests to make sure there is nothing else causing your condition. These tests may include: ??? Blood tests. ??? Urine tests. ??? CT scan of the abdomen. How is this treated? Most cases of this condition are mild and can be treated at home. Treatment may include: ??? Taking edtb-ane-gqofrml pain medicines. ??? Following a clear liquid diet. ??? Taking antibiotic medicines by mouth. ??? Resting. More severe cases may need to be treated at a hospital. Treatment may include: ??? Not eating or drinking. ??? Taking prescription pain medicine. ??? Receiving antibiotic medicines through an IV. ??? Receiving fluids and nutrition through an IV. ??? Surgery. When your condition is under control, your health care provider may recommend that you have a colonoscopy. This is an exam to look at the entire large intestine. During the exam, a lubricated, bendable tube is inserted into the anus and then passed into the rectum, colon, and other parts of the large intestine. A colonoscopy can show how severe your diverticula are and whether something else may be causing your symptoms. Follow these instructions at home: Medicines ??? Take bszt-qne-axakilm and prescription medicines only as told by your health care provider. These include fiber supplements, probiotics, and stool softeners. ??? If you were prescribed an antibiotic medicine, take it as told by your health care provider. Donot stop taking the antibiotic even if you start to feel better. ??? Ask your health care provider if the medicine prescribed to you requires you to avoid driving or using machinery. Eating and drinking ??? Follow a full liquid diet or another diet as directed by your health care provider. ??? After your symptoms improve, your health care provider may tell you to change your diet. He or she may recommend that you eat a diet that contains at least 25 grams (25 g) of fiber daily. Fiber makes it easier to pass stool. Healthy sources of fiber include: ??? Berries. One cup contains 4???8 grams of fiber. ??? Beans or lentils. One-half cup contains 5???8 grams of fiber. ??? Green vegetables. One cup contains 4 grams of fiber. ??? Avoid eating red meat. General instructions ??? Do not use any products that contain nicotine or tobacco, such as cigarettes, e-cigarettes, andchewing tobacco. If you need help quitting, ask your health care provider. ??? Exercise for at least 30 minutes, 3 times each week. You should exercise hard enough to raise your heart rate and break a sweat. ??? Keep all follow-up visits as told by your health care provider. This is important. You may needto have a colonoscopy. Contact a health care provider if: ??? Your pain does not improve. ??? Your bowel movements do not return to normal. Get help right away if: ??? Your pain gets worse. ??? Your symptoms do not get better with treatment. ??? Your symptoms suddenly get worse. ??? You have a fever. ??? You vomit more than one time. ??? You have stools that are bloody, black, or tarry. Summary ??? Diverticulitis is infection or inflammation of small pouches (diverticula) in the colon that form due to a condition called diverticulosis. Diverticula can trap stool (feces) and bacteria, causing infection and inflammation. ??? You are at higher risk for this condition if you have diverticulosis and you eat a diet that does not include enough fiber. ??? Most cases of this condition are mild and can be treated at home. More severe cases may need deyanira treated at a hospital. ??? When your condition is under control, your health care provider may recommend that you have an exam called a colonoscopy. This exam can show how severe your diverticula are and whether something else may be causing your symptoms. ??? Keep all follow-up visits as told by your health care provider. This is important. This information is not intended to replace advice given to you by your health care provider. Make sure you discuss any questions you have with your health care provider. Document Revised: 01/07/2020 Document Reviewed: 01/07/2020 [employer] Patient Education ?? 2021 [employer]. 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 Exacerbated with movement. Dysuria, pain when attempting BM. hx stone left. Denies fevers at home, afebrile in triage. Hx scar tissue s/p c- section. No gal/apen History Of Present Illness: 62 y.o. woman presents to the emergency department to be evaluated for pain diffusely in her abdomen and back. Her pain is primarily in her lower abdomen and radiating toward her pelvis and back. Shereports that it has been present for 3 days. She reports that this is a different pain from her previous abdominal pain. She denies any fevers, chills, sweats. She has had some nausea without any vomiting. She has not had any change in bowel movements (she reports that she deals with chronic diarrhea). She has been passing gas normally. She denies any dysuria or hematuria but does endorse some pressure in her suprapubic region on urinating. She has had a good appetite and had a normal lunch. She took some ibuprofen last night, no pain medications today. Physical Exam Vitals & Measurements T:??36.3?C ??(Temporal Artery)?? HR:??71??(Peripheral)?? RR:??20?? BP:??152/83?? SpO2:??96%?? HT:??162.000??cm?? WT:??73.00??kg??(Estimated)?? Pain Score:??10?? General: A&Ox3, Calm, no apparent distress, well developed, pleasant and cooperative ?? HEENT: Head ATNC. Eyes: RJ. Extraocular Mobility: intact and symmetrical. Conjunctiva: non-injected, anicteric, no discharge. Oral Cavity: moist. Neck: no masses, no crepitus. Lymph Nodes: no cervical lymphadenopathy? Respiratory: CTA bilaterally, no wheezing, no rales/crackles? CV: RRR, normal S1, normal S2, no murmurs, rubs or gallops ?? Abdomen : soft, non-tender, non-distended, no rebound or guarding, no hepatosplenomegaly ?? Extremities: no le swelling, warm and well-perfused, no cyanosis, capillary refill <2 seconds? Skin: no rash, no lesions, no bruising? Neuro: normal tone, normal strength in all 4 extremities, sensation intact?? Medical Decision MakinF presents with 3 days of abdominal pain Thorough chart review performed Pt had a CT a/p about a year ago with indication which appears to be similar to today's, CT was without any acute findings She is well and non toxic appearing with reassuring VS today, she appears to say that her pain is different today Large DDx Plan: labs, CT a/p, analgesia No leukocytosis and reassuring labs overall CT with mild diverticulitis Discussed conservative treatment and latest recommendations to avoid Abx with the patient. She willstart Abx if her pain has not improved tomorrow. Discharge instructions and return precautions discussed, all questions answered. Procedure No Qualifying Data Assessment/Plan 1.??Diverticulitis??K57.92 Ordered: !-Augmentin 875 mg-125 mg oral tablet, 1 tab, Oral, every 8 hr, X 5 days, # 15 tab, 0 Refill(s), 07/26/22 18:01:00 EDT, Pharmacy: [id number], 162, cm, 07/21/22 15:56:00 EDT, Height/Length Dosing, 73, kg, 07/21/22 15:56:00 EDT, Weight Dosing Discharge Patient, 07/21/22 18:03:00 EDT, Constant Indicator ?? Orders: !-Zofran, 4 mg = 2 mL, IV Push, Soln, every 6 hr, PRN nausea/vomiting, First Dose: 07/21/22 16:22:00 EDT, STAT Patient Education Diverticulitis Medication Reconciliation New Prescription amoxicillin-clavulanate (!-Augmentin 875 mg-125 mg oral tablet)1 tab Oral (given by mouth) every 8 hours for 5 Days. Refills: 0. ?? Unchanged atorvastatin (atorvastatin 20 mg oral tablet)1 tab Oral (given by mouth) every day. FOR 90 DAYS. Refills: 2. ?? cholecalciferol (Vitamin D3)1 po daily. ?? ciprofloxacin (Cipro 500 mg oral tablet)1 tab Oral (given by mouth) every 12 hours for 10 Days. Refills: 0. ?? FLUoxetine (FLUoxetine 20 mg oral capsule)1 Capsules Oral (given by mouth) every day. ?? FLUoxetine (FLUoxetine 40 mg oral capsule)1 Capsules Oral (given by mouth) every day. Refills: 3. ?? meloxicam (meloxicam 15 mg oral tablet)1 tab Oral (given by mouth) every day. for 90 days. Refills:2. ?? Other Prescription (Vitamin B Complex)1 tab Oral (given by mouth) every day. ?? rizatriptan (Maxalt 10 mg oral tablet)1 tab PO at sign of migraine, may repeat in 2 hours, NTE 30 mg per day. ?? topiramate (Topamax 25 mg oral tablet)1 tab Oral (given by mouth) every day. for 90 days. ?? topiramate (Topamax 50 mg oral tablet)1 tab Oral (given by mouth) every day. for 90 days. ?? traZODone (traZODone 50 mg oral tablet)1 tab Oral (given by mouth) every night at bedtime. for 90 days. Problem List/Past Medical History Ongoing Cervical radiculopathy Ex-smoker Fibromyalgia Hepatosplenomegaly Hyperlipidemia Migraine without aura Mixed anxiety and depressive disorder Historical No qualifying data Procedure/Surgical History ???Hysterectomy (07/2018)???Fusion (02/2018)???Laparoscopic total hysterectomy (04/14/2009)???Angiogram???Appendectomy???Cholecystectomy???Nerve block in lumbar spine???Lumpectomy???Tonsillectomy Medication Administration Given 0.9% NaCl bolus, 500 mL, IV Bolus acetaminophen, 650 mg, Oral Allergies NSAIDs??(Nauseous) alendronate codeine??(Nausea) Social History Alcohol Current, Beer, 1-2 times per year- Comments: a few times per week, 3 - 4 beers Electronic Cigarette/Vaping Electronic Cigarette Use: Never. Tobacco Former tobacco user Tobacco Use:. Total pack years: 37. Never Smokeless Tobacco use:.- Comments: quit in 2008 Family History Chronic obstructive lung disease: Mother. Diabetes mellitus: Sister and Brother. Disorder of thyroid gland: Mother. Fibrosis of lung: Mother. Heart disease: Brother. Hyperlipidemia: Sister. Hypertensive disorder: Father and Daughter. Myocardial infarction: Father. Lab Results CBC and Differential?? LATEST RESULTS?? HISTORICAL RESULTS?? WBC?? 07/21/22 16:25?? 8.3?? 12/21/21?? 5.2?? RBC?? 07/21/22 16:25?? 4.2?? 12/21/21?? 4.4?? Hgb?? 07/21/22 16:25?? 12.7?? 12/21/21?? 13.4?? Hct?? 07/21/22 16:25?? 39.6?? 12/21/21?? 41.2?? MCV?? 07/21/22 16:25?? 93.4?? 12/21/21?? 93.6?? MCH?? 07/21/22 16:25?? 30.0?? 12/21/21?? 30.5?? MCHC?? 07/21/22 16:25?? 32.1?? 12/21/21?? 32.5?? RDW-CV?? 07/21/22 16:25?? 12.6?? 12/21/21?? 12.7?? Platelets?? 07/21/22 16:25?? 242?? 12/21/21?? 263?? Neutro Auto?? 07/21/22 16:25?? 55.0?? 12/21/21?? 52.4?? Lymph Auto?? 07/21/22 16:25?? 34.4?? 12/21/21?? 35.8?? [place] Auto?? 07/21/22 16:25?? 7.2?? 12/21/21?? 7.0?? Eos, Auto?? 07/21/22 16:25?? 2.5?? 12/21/21?? 4.0?? Basophil Auto?? 07/21/22 16:25?? 0.5?? 12/21/21?? 0.6?? Imm Gran Auto?? 07/21/22 16:25?? 0.4?? 12/21/21?? 0.2?? Neutro Absolute?? 07/21/22 16:25?? 4.6?? 12/21/21?? 2.8? Routine Chemistry?? LATEST RESULTS?? HISTORICAL RESULTS?? Sodium Level?? 07/21/22 16:25?? 141?? 12/21/21?? 139?? Potassium Level?? 07/21/22 16:25?? 3.8?? 12/21/21?? 4.1?? Chloride Level?? 07/21/22 16:25?? 108 ??High?? 12/21/21?? 107?? CO2?? 07/21/22 16:25?? 23?? 12/21/21?? 24?? Alk Phos?? 07/21/22 16:25?? 89?? 12/21/21?? 79?? AST?? 07/21/22 16:25?? 16?? 12/21/21?? 15?? ALT?? 07/21/22 16:25?? 32?? 12/21/21?? 24?? BUN?? 07/21/22 16:25?? 13?? 12/21/21?? 15?? Glucose Level?? 07/21/22 16:25?? 92?? 12/21/21?? 101?? Creatinine Level?? 07/21/22 16:25?? 0.55?? 12/21/21?? 0.61?? eGFR AA?? 07/21/22 16:25?? 104?? 12/21/21?? 102?? eGFR Non-AA?? 07/21/22 16:25?? 104?? 12/21/21?? 102?? Calcium Level?? 07/21/22 16:25?? 8.9?? 12/21/21?? 9.1?? Protein Total?? 07/21/22 16:25?? 7.0?? 12/21/21?? 7.0?? Albumin Level?? 07/21/22 16:25?? 3.5?? 12/21/21?? 3.9?? Bilirubin Total?? 07/21/22 16:25?? 0.3?? 12/21/21?? 0.6? UA Macroscopic?? LATEST RESULTS?? UA Color?? 07/21/22 16:10?? Yellow?? UA Appear?? 07/21/22 16:10?? Clear?? UA Glucose?? 07/21/22 16:10?? Negative?? UA Bili?? 07/21/22 16:10?? Negative?? UA Ketones?? 07/21/22 16:10?? Negative?? UA Spec Grav?? 07/21/22 16:10?? 1.010?? UA Blood?? 07/21/22 16:10?? Negative?? UA pH?? 07/21/22 16:10?? 7.0?? UA Protein?? 07/21/22 16:10?? Negative?? UA Urobilinogen?? 07/21/22 16:10?? Normal?? UA Nitrite?? 07/21/22 16:10?? Negative?? UA Leuk Est?? 07/21/22 16:10?? Trace Abnormal?? UA Culture Ind?.?? 07/21/22 16:10?? Not Indicated? UA Microscopic?? LATEST RESULTS?? UA WBC?? 07/21/22 16:10?? 0-3?? UA RBC?? 07/21/22 16:10?? 0-2?? UA Squam Epithelial?? 07/21/22 16:10?? None Seen?? UA Mucous?? 07/21/22 16:10?? None Seen?? UA Bacteria?? 07/21/22 16:10?? Rare? 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 The following includes patient education materials and information regarding your injury/illness. Diagnosis from Today's Visit Diverticulitis Discharge Vitals Temperature??(Temporal Artery) 97.3 ??F (36.3 ??C) Heart Rate??(Peripheral) 71 Respiratory Rate?? 20 Blood Pressure?? 152/83?? Height?? 63.78 in (162.000 cm) Weight??(Estimated) 160.96 lb (73.00 kg) Allergies NSAIDs??(Nauseous) alendronate codeine??(Nausea) What to Do Next Instructions from Your Care Team Today you were diagnosed with diverticulitis which is inflammation of the colon.?? This usually resolves once its own.?? If she still having a lot of pain tomorrow,??you may start??a 5-day course of??antibiotics.?? Please??eat and drink small amounts of food and fluids??every few hours.?? Follow-upwith your primary care provider for reevaluation in 1 to 2 weeks. ??Return to the emergency department for any new or worsening symptoms. You were treated today on an emergency basis; it may be mejía to contact your primary care provider to notify them of your visit today. You may have been referred to your regular doctor or a specialist, please follow up as instructed. If your condition worsens or you can't get in to see the doctor, contact the Emergency Department. Medications What How Much When Why Instructions Next Dose New amoxicillin-clavulanate (!- Augmentin 875 mg-125 mg oral tablet) 1 tab Oral (given by mouth) Every 8 hours Diverticulitis Duration: 5 Days Pickup at [id number] Unchanged atorvastatin (atorvastatin 20 mg oral tablet) 1 tab Oral (given by mouth) Every day FOR 90 DAYS ?? Unchanged cholecalciferol (Vitamin D3) See instructions 1 po daily ?? Unchanged ciprofloxacin (Cipro 500 mg oral tablet) 1 tab Oral (given by mouth) Every 12 hours Duration: 10 Days Unchanged FLUoxetine (FLUoxetine 20 mg oral capsule) 1 Capsules Oral (given by mouth) Every day Unchanged FLUoxetine (FLUoxetine 40 mg oral capsule) 1 Capsules Oral (given by mouth) Every day Unchanged meloxicam (meloxicam 15 mg oral tablet) 1 tab Oral (given by mouth) Every day for 90 days ?? Unchanged Other Prescription (Vitamin B Complex) 1 tab Oral (given by mouth) Every day Unchanged rizatriptan (Maxalt 10 mg oral tablet) See instructions 1 tab PO at sign of migraine, may repeat in 2 hours, NTE 30 mg per day ?? Unchanged topiramate (Topamax 25 mg oral tablet) 1 tab Oral (given by mouth) Every day for 90 days ?? Unchanged topiramate (Topamax 50 mg oral tablet) 1 tab Oral (given by mouth) Every day for 90 days ?? Unchanged traZODone (traZODone 50 mg oral tablet) 1 tab Oral (given by mouth) Every night at bedtime for 90 days ?? Pharmacy Information [id number]: [address], [place] [id number] [phone] Education Materials Diverticulitis Diverticulitis is infection or inflammation of small pouches (diverticula) in the colon that form due to a condition called diverticulosis. Diverticula can trap stool (feces) and bacteria, causing infection and inflammation. Diverticulitis may cause severe stomach pain and diarrhea. It may lead to tissue damage in the colon that causes bleeding or blockage. The diverticula may also burst (rupture) and cause infected stool to enter other areas of the abdomen. What are the causes? This condition is caused by stool becoming trapped in the diverticula, which allows bacteria to grow in the diverticula. This leads to inflammation and infection. What increases the risk? You are more likely to develop this condition if you have diverticulosis. The risk increases if you: ? Are overweight or obese. ? Do not get enough exercise. ? Drink alcohol. ? Use tobacco products. ? Eat a diet that has a lot of red meat such as beef, pork, or bahena. ? Eat a diet that does not include enough fiber. High-fiber foods include fruits, vegetables, beans, nuts, and whole grains. ? Are over 40 years of age. What are the signs or symptoms? Symptoms of this condition may include: ? Pain and tenderness in the abdomen. The pain is normally located on the left side of the abdomen, but it may occur in other areas. ? Fever and chills. ? Nausea. ? Vomiting. ? Cramping. ? Bloating. ? Changes in bowel routines. ? Blood in your stool. How is this diagnosed? This condition is diagnosed based on: ? Your medical history. ? A physical exam. ? Tests to make sure there is nothing else causing your condition. These tests may include: ? Blood tests. ? Urine tests. ? CT scan of the abdomen. How is this treated? Most cases of this condition are mild and can be treated at home. Treatment may include: ? Taking vqhw-hdc-nbdbxob pain medicines. ? Following a clear liquid diet. ? Taking antibiotic medicines by mouth. ? Resting. More severe cases may need to be treated at a hospital. Treatment may include: ? Not eating or drinking. ? Taking prescription pain medicine. ? Receiving antibiotic medicines through an IV. ? Receiving fluids and nutrition through an IV. ? Surgery. When your condition is under control, your health care provider may recommend that you have a colonoscopy. This is an exam to look at the entire large intestine. During the exam, a lubricated, bendable tube is inserted into the anus and then passed into the rectum, colon, and other parts of the large intestine. A colonoscopy can show how severe your diverticula are and whether something else may be causing your symptoms. Follow these instructions at home: Medicines ? Take owcl-tew-cchiehf and prescription medicines only as told by your health care provider. These include fiber supplements, probiotics, and stool softeners. ? If you were prescribed an antibiotic medicine, take it as told by your health care provider. Do notstop taking the antibiotic even if you start to feel better. ? Ask your health care provider if the medicine prescribed to you requires you to avoid driving or using machinery. Eating and drinking ? Follow a full liquid diet or another diet as directed by your health care provider. ? After your symptoms improve, your health care provider may tell you to change your diet. He or she may recommend that you eat a diet that contains at least 25 grams (25 g) of fiber daily. Fiber makesit easier to pass stool. Healthy sources of fiber include: ? Berries. One cup contains 4???8 grams of fiber. ? Beans or lentils. One-half cup contains 5???8 grams of fiber. ? Green vegetables. One cup contains 4 grams of fiber. ? Avoid eating red meat. General instructions ? Do not use any products that contain nicotine or tobacco, such as cigarettes, e- cigarettes, and chewing tobacco. If you need help quitting, ask your health care provider. ? Exercise for at least 30 minutes, 3 times each week. You should exercise hard enough to raise your heart rate and break a sweat. ? Keep all follow-up visits as told by your health care provider. This is important. You may need to have a colonoscopy. Contact a health care provider if: ? Your pain does not improve. ? Your bowel movements do not return to normal. Get help right away if: ? Your pain gets worse. ? Your symptoms do not get better with treatment. ? Your symptoms suddenly get worse. ? You have a fever. ? You vomit more than one time. ? You have stools that are bloody, black, or tarry. Summary ? Diverticulitis is infection or inflammation of small pouches (diverticula) in the colon that form due to a condition called diverticulosis. Diverticula can trap stool (feces) and bacteria, causing infection and inflammation. ? You are at higher risk for this condition if you have diverticulosis and you eat a diet that does not include enough fiber. ? Most cases of this condition are mild and can be treated at home. More severe cases may need to be treated at a hospital. ? When your condition is under control, your health care provider may recommend that you have an examcalled a colonoscopy. This exam can show how severe your diverticula are and whether something elsemay be causing your symptoms. ? Keep all follow-up visits as told by your health care provider. This is important. This information is not intended to replace advice given to you by your health care provider. Make sure you discuss any questions you have with your health care provider. Document Revised: 01/07/2020 Document Reviewed: 01/07/2020 [employer] Patient Education ?? 2021 [employer] Tests Performed Medications and Immunizations Administered Given 0.9% NaCl bolus, 500 mL, IV Bolus acetaminophen, 650 mg, Oral Lab Test Name Test Result Date/Time WBC 8.3 x10^3/mcL 07/21/2022 16:25 EDT RBC 4.2 x10^6/mcL 07/21/2022 16:25 EDT Hgb 12.7 g/dL 07/21/2022 16:25 EDT Hct 39.6 % 07/21/2022 16:25 EDT MCV 93.4 07/21/2022 16:25 EDT MCH 30.0 pg 07/21/2022 16:25 EDT MCHC 32.1 g/dL 07/21/2022 16:25 EDT RDW-CV 12.6 % 07/21/2022 16:25 EDT Platelets 242 x10^3/mcL 07/21/2022 16:25 EDT Neutro Auto 55.0 % 07/21/2022 16:25 EDT Lymph Auto 34.4 % 07/21/2022 16:25 EDT [place] Auto 7.2 % 07/21/2022 16:25 EDT Eos, Auto 2.5 % 07/21/2022 16:25 EDT Basophil Auto 0.5 % 07/21/2022 16:25 EDT Imm Gran Auto 0.4 % 07/21/2022 16:25 EDT Neutro Absolute 4.6 x10^3/mcL 07/21/2022 16:25 EDT Sodium Level 141 mmol/L 07/21/2022 16:25 EDT Potassium Level 3.8 mmol/L 07/21/2022 16:25 EDT Chloride Level 108 mmol/L 07/21/2022 16:25 EDT CO2 23 mmol/L 07/21/2022 16:25 EDT Alk Phos 89 unit/L 07/21/2022 16:25 EDT AST 16 unit/L 07/21/2022 16:25 EDT ALT 32 unit/L 07/21/2022 16:25 EDT BUN 13 mg/dL 07/21/2022 16:25 EDT Glucose Level 92 mg/dL 07/21/2022 16:25 EDT Creatinine Level 0.55 mg/dL 07/21/2022 16:25 EDT eGFR AA 104 07/21/2022 16:25 EDT eGFR Non-AA 104 07/21/2022 16:25 EDT Calcium Level 8.9 mg/dL 07/21/2022 16:25 EDT Protein Total 7.0 g/dL 07/21/2022 16:25 EDT Albumin Level 3.5 g/dL 07/21/2022 16:25 EDT Bilirubin Total 0.3 mg/dL 07/21/2022 16:25 EDT UA Color YELLOW. 07/21/2022 16:10 EDT UA Appear CLEAR. 07/21/2022 16:10 EDT UA Glucose NEGATIVE 07/21/2022 16:10 EDT UA Bili NEGATIVE 07/21/2022 16:10 EDT UA Ketones NEGATIVE 07/21/2022 16:10 EDT UA Spec Grav 1.010 07/21/2022 16:10 EDT UA Blood NEGATIVE 07/21/2022 16:10 EDT UA pH 7.0 07/21/2022 16:10 EDT UA Protein NEGATIVE 07/21/2022 16:10 EDT UA Urobilinogen 0.2 Uro 07/21/2022 16:10 EDT UA Nitrite NEGATIVE 07/21/2022 16:10 EDT UA Leuk Est TRACE. 07/21/2022 16:10 EDT UA Culture Ind?. Not Indicated 07/21/2022 16:10 EDT UA WBC 0-3 07/21/2022 16:10 EDT UA RBC 0-2 07/21/2022 16:10 EDT UA Squam Epithelial None Seen 07/21/2022 16:10 EDT UA Mucous None Seen 07/21/2022 16:10 EDT UA Bacteria Rare 07/21/2022 16:10 EDT Patient/School Crossing Guard Signature Patient Name:LETICIA PICKERINGCRESENCIO Magdaleno I have received this information and my questions have been answered. Patient/School Crossing Guard Name: Patient/School Crossing Guard Signature: Relationship to Patient: Witness Name/Signature: Date: Electronically Signed on: 07/21/2022 18:08 EDTSigned by:[facility] Emergency department Note * Ely Aiken: PERFORM Event Display: ED Notes Authored Date: [id number] Patient Care team information Care Team Personnel Name: Eve Terry [employer] Position: PowerChart View Only Member Role: Primary Care Physician Address: Address: [address] [place] [address]- [place] Name: Mary Isaacs MD Position: Physician Member Role: ED Physician Address: Address: [address] [place] [phone]- [place] Name: Lizzy Hampton RN Position: Nurse Member Role: ED Nurse
[2023-04-18 19:45] LABS: Bilirubin Negative (Negative); Blood Negative (Negative); Clarity Sl Cloudy (Clear); Glucose Negative (Negative); Ketones Negative (Negative); Leukocyte Esterase Negative (Negative); Nitrite Negative (Negative); Specific Gravity >= 1.030 (1.005-1.025); Urobilinogen 0.2 mg/dL (Up to 0.2)
== END 2023-04-18 19:28 | disposition home or self-care (01) ==
LOC: NCHCN 19:27
PROVIDERS: PCP Nurse Practitioner Family; Visit Provider Nurse Practitioner Family
DX: R30.0 Dysuria (principal)
CPT/HCPCS: 81003

== ENCOUNTER 2023-08-26 15:48 | Outpatient (REF) | payer OTHER, SELFPAY ==
[2023-08-26 19:32] LABS: ESR 7 mm/hr (0-30)
[2023-08-26 19:58] LABS: C-Reactive Protein < 0.50 mg/dL (<or=0.5)
[2023-08-27 22:09] LABS: Rheumatoid Factor 24.4 IU/mL (<12.0)
[2023-08-29 09:26] LABS: Cyclic Citrullinated Peptide <2.5 U/mL (<5.0)
== END 2023-08-26 15:49 | disposition home or self-care (01) ==
LOC: NCHCN 15:48
PROVIDERS: PCP Nurse Practitioner Family; Visit Provider Internal Medicine
DX: M35.3 Polymyalgia rheumatica (principal)
CPT/HCPCS: 85652; 86200; 86140; 86431

== ENCOUNTER 2024-07-24 12:32 | Outpatient (REF) | payer MEDICARE, SELFPAY ==
[2024-07-24 19:38] LABS: HCT 43.4 % (36.0-46.0); HGB 13.8 g/dL (11.2-15.7); MCH 30.3 pg (27.0-33.0); MCHC 31.8 % (32.0-36.0); MCV 95 fL (80-95); MPV 11.3 fL (8.0-11.0); Platelet Count 278 10^3/uL (130-400); RBC 4.55 10^6/uL (3.93-5.22); RDW 12.9 % (11.7-14.6); WBC 6.38 10^3/uL (4.4-10.8)
[2024-07-24 19:54] LABS: ALT 47 U/L (14-59); AST 30 U/L (15-37); Albumin 4.1 g/dL (3.4-5.0); Alkaline Phosphatase 100 U/L (46-116); Anion Gap 8.4 mmol/L (3-11); BUN 12 mg/dL (7-18); Bilirubin, Direct 0.1 mg/dL (0.0-0.2); Bilirubin, Total 0.6 mg/dL (0.2-1.0); CO2 27.6 mmol/L (21.0-32.0); CREATININE 0.7 mg/dL (0.55-1.02); Calcium 9.5 mg/dL (8.5-10.1); Calculated LDL 76 mg/dL (<100); Chloride 107 mmol/L (98-107); Cholesterol 197 mg/dL (<200); Estimated GFR 96.52 (mL/min/1.73m2); Glucose 87 mg/dL (74-106); HDL Cholesterol 76 mg/dL (>or=50); Potassium 4.8 mmol/L (3.5-5.1); Sodium 143 mmol/L (136-145); Total Protein 7.5 g/dL (6.4-8.2); Triglyceride 226 mg/dL (<150)
== END 2024-07-24 12:33 | disposition home or self-care (01) ==
LOC: NCHCN 12:32
PROVIDERS: PCP Nurse Practitioner Family; Visit Provider Nurse Practitioner Family
DX: E78.5 Hyperlipidemia, unspecified (principal); G25.81 Restless legs syndrome
CPT/HCPCS: 80048; 80061; 80076; 85027

== ENCOUNTER 2024-12-06 18:41 | Outpatient (REF) | payer MEDICARE, SELFPAY | END 2024-12-06 18:42 | disposition home or self-care (01) | LOC: NCHCN 18:41 | PROVIDERS: PCP Nurse Practitioner Family; Visit Provider Physician Assistant | DX: R30.0 Dysuria (principal) | CPT/HCPCS: 87086; 87480; 87510; 87660 ==